=== PATIENT | female | born 1965 | race Caucasian/White ===

== ENCOUNTER 2022-12-06 10:25 | Day surgery (SDC) | payer OTHER, SELFPAY ==
[2022-11-30 10:10] LABS: Absolute Lymphocytes (CBC) 3.2 K/uL (0.7-4.9); Lymphocytes % 32.2 % (15.3-44.8); MCV 86.9 fL (80-100); MPV 7.9 fL (7.6-11.3); RBC Red Blood Cell Count 5.17 M/uL (3.86-4.86)
[2022-11-30 10:12] LABS: Protime INR 0.95
[2022-11-30 10:14] LABS: Potassium 3.9 mEq/L (3.5-5.1)
--- NOTE | 2022-11-30 11:32 | RAD REPORT ---
EXAM DESCRIPTION: [facility] (2 Views)11/30/2022 9:28 am CLINICAL HISTORY: pre op for surgery COMPARISON: No comparisons TECHNIQUE: PA and lateral views of the chest. FINDINGS: The lungs are clear. No pneumothorax or effusion. The cardiomediastinal contours are unrem arkable. Mild anterior wedge compression deformity along the midthoracic spine, probably chronic. IMPRESSION: No acute cardiopulmonary process.
--- NOTE | 2022-11-30 12:12 | EKG ---
Test Date: 2022-11-30 Test Time: 09:10:58 Lead Housekeeper: ESTUARDO MEASUREMENT RESULTS: Intervals: Rate: 87 HI: 166 QRSD: 84 QT: 370 QTc: 445 [place]: P: 69 HI: 166 QRS: 70 T: 75 INTERPRETIVE STATEMENTS: Normal sinus rhythm Normal ECG No previous ECG available for comparison Electronically Signed On 11-30-22 12:12:31 CDT by Gordo Grimaldo
[2022-12-06] MEDS ORDERED: NA CHLORIDE 0.9% 1,000 ML ONE (10:33)
[2022-12-06] MEDS ORDERED: propofoL 200 MG/20 ML VIAL IV ONE ×2 (10:51→12:04)
[2022-12-06] MEDS ORDERED: KETOROLAC 30 MG/ML INJ ONE (10:51)
[2022-12-06] MEDS ORDERED: LIDOCAINE 2% MPF 5 ML VIAL ONE ×2 (10:51→12:04)
[2022-12-06] MEDS ORDERED: FENTANYL CITR 100 MCG/2 ML ONE ×3 (10:51→12:43)
[2022-12-06] MEDS ORDERED: ONDANSETRON 4 MG/2 ML VIAL ONE ×2 (10:52→12:04)
[2022-12-06] MEDS ORDERED: MIDAZOLAM HCL 2 MG/2 ML INJ ONE ×2 (10:52→12:04)
[2022-12-06] MEDS: CEFAZOLIN SODIUM 2 GM/VIAL ONE ×2 (12:14→12:32)
[2022-12-06] MEDS: BUPIVACAINE 0.25% PF 10 ML VIAL ONE ×2 (12:33→12:34)
--- NOTE | 2022-12-06 13:13 | P.BOP ---
Preoperative diagnosis: right index, middle ring finger trigger digits Postoperative diagnosis: same Primary procedure: right index finger A1 navdeep release Secondary procedure: right middle finger A1 navdeep release Other procedure(s): right ring finger A1 navdeep release Tool Mechanic: NONE,NONE Estimated blood loss: 3 cc Specimen: none Findings: see dictation Anesthesia: General Complications: None Implants: none Fluids & blood products: per anesthesia record; TT: 26 mins @ 250 mmHg Transferred to: Recovery Room Condition: Good
[2022-12-06 13:36] VITALS: TEMP 97
[2022-12-06 13:59] VITALS: BP 108/63; O2SAT 99
--- NOTE | 2022-12-08 20:00 | OP ---
Date of Procedure: 12/06/2022 Surgeon: Bao Powell MD Preoperative Diagnoses: 1.Right index finger trigger digit. 2.Right middle finger trigger digit. 3.Right ring finger trigger digit. Postoperative Diagnoses: 1.Right index finger trigger digit. 2.Right middle finger trigger digit. 3.Right ring finger trigger digit. Procedures Performed: 1.Right index finger A1 navdeep release. 2.Right middle finger A1 navdeep release. 3.Right ring finger A1 navdeep release. Anesthesia: General LMA. Fluids: Per Anesthesia record. Estimated Blood Loss: 3 cc. Complications: None. Implants: None. Tourniquet Time: 26 minutes at 250 mmHg. Indication For Procedures: Jessie is a 57-year-old female who presented my clinic with signs and sy mptoms consistent with right index, middle, and ring finger trigger digits. The patient failed conse rvative treatment measures and had significant pain that interferes with her activities of daily lily ng. I discussed with the patient at length, risks and benefits associated with operative and nonoper ative treatment. She expressed understanding and elected to proceed with operative treatment. Description Of Procedure: After informed consent was obtained, the patient was identified in the pre operative holding area. The right index, middle, and ring fingers were marked. The patient was then brought back to the operating room, transferred to the operating table in supine fashion, and placed under general LMA anesthesia. The right upper extremity was then prepped and draped in usual steril e fashion. A time-out was initiated. The correct patient and procedure were confirmed and identifie d. The patient did receive her preoperative prophylactic antibiotics. The right upper extremity was exsanguinated and tourniquet was inflated to 250 mmHg. Attention was first taken to the left ring f sharlene where approximately a 1.5 cm longitudinal incision was made centered over the A1 navdeep. Disse ction was then taken down using Ragnells to the flexor tendon sheath, which was incised using a 15 bl piero. There was significant tenosynovial fluid that was expressed. The portion of the flexor tendon sheath was then excised using tenotomies. The tendon was then brought out through the incision and t here was full excursion of the tendon without any signs of triggering. Next, attention was taken to the middle finger where approximately 1.5 cm incision was made over the A1 navdeep. Dissection was th en taken down to the flexor tendon sheath using Ragnells and a 15 blade was then used to open the A1 navdeep and a portion of the flexor tendon sheath was excised using tenotomies. The tendon was wm t through the incision and there was full excursion of the flexor tendon without any triggering noted . Next, attention was taken to the index finger, where approximately 1.5 cm longitudinal incision wa s made centered over the A1 navdeep. Dissection was then taken down to the flexor tendon sheath using Ragnell. The A1 navdeep was then opened using a 15 blade. A portion of the flexor tendon sheath was excised using tenotomies. The tendon was brought through the incision and there was full excursion of the flexor tendon without any trigger noted. Next, the wounds were then irrigated thoroughly with normal saline. Skin was approximated using 5-0 Prolene. Sterile dressings were applied. Tournique t was let down. The patient was awakened and transferred to PACU in stable condition. Postoperative Plan: The patient will begin working on range of motion exercises. She will keep the dressings dry. She will follow up in 1 week for wound check and suture removal. CV/MODL Voice ID: [id number] Report ID: [id number]
== END 2022-12-06 14:53 | disposition home or self-care (01) ==
LOC: OR 10:25
PROVIDERS: ATTEND Orthopaedic Surgery Sports Medicine
PROC: 0LN70ZZ Release Right Hand Tendon, Open Approach (ICD-10-PCS; 2022-12-06)
PROC: 0LN70ZZ Release Right Hand Tendon, Open Approach (ICD-10-PCS; 2022-12-06)
PROC: 0LN70ZZ Release Right Hand Tendon, Open Approach (ICD-10-PCS; principal; 2022-12-06 12:00)
DX: M65.321 Trigger finger, right index finger (principal); M65.331 Trigger finger, right middle finger; M65.341 Trigger finger, right ring finger; I10 Essential (primary) hypertension; E11.9 Type 2 diabetes mellitus without complications; E66.9 Obesity, unspecified; Z68.34 Body mass index [BMI] 34.0-34.9, adult; Z79.899 Other long term (current) drug therapy
CPT/HCPCS: 36415; 71046; 80048; 82947; 85025; 85610; 85730; 93005; J2001; J2250; J2405; J2704; J3010; J7030